=== PATIENT | female | born 1940 | race Caucasian/White ===

== ENCOUNTER → 2016-11-03 | Outpatient (CLI) | payer MEDICARE ==
[~2016-11-03] MED LIST: ASPIRIN81 M1 PO; ATARAX25 MG PO; CALCIUM; COUMADIN5 M1 IV; DILTIAZEM120 MG PO; FISH OIL; HYDROCODONE BIT1 T11 PO; LANOXIN; LOPRESSOR25 MG PO; MOBIC7.5 MG PO; MULTIPLE VITAMI1 CAP PO; PREDNISONE20 MG PO; PROTONIX; QUINAPRIL HYDRO1 TA3 PO; REGLAN5 MG PO; TUMS 500500 MG PO; VITAMIN D; [UNRECOGNIZED DRUG - REMARK]
[2016-11-03 15:38] LABS: INTERNATIONAL NORM RATIO 2.9 (2.0-3.5); PROTHROMBIN TIME 31.3 SECONDS (9.0-12.4)
== END | disposition home or self-care (01) ==
LOC: LAB 14:51
PROVIDERS: Internal Medicine
DX: I48.91 Unspecified atrial fibrillation (principal)

== ENCOUNTER → 2017-01-14 | Outpatient (CLI) | payer MEDICARE, OTHER ==
[2017-01-14 14:51] LABS: PROTHROMBIN TIME 34.1 SECONDS (9.0-12.4)
== END | disposition home or self-care (01) ==
LOC: LAB 13:45
PROVIDERS: Internal Medicine
DX: I48.91 Unspecified atrial fibrillation (principal)

== ENCOUNTER → 2017-01-20 | Outpatient (CLI) | payer MEDICARE, OTHER ==
[2017-01-20 10:46] LABS: HEMATOCRIT 48.5 % (37.0-47.0); HEMOGLOBIN 16.1 g/dl (12.0-16.0); MEAN CELL VOLUME 93.3 fl (81.0-99.0); MEAN CORPUSCULAR HGB CONC 33.2 g/dl (33.0-37.0); MEAN PLATELET VOLUME 9.8 fl (9.6-12.3); RED BLOOD COUNT 5.2 10*6/uL (4.10-5.10); RED CELL DISTRI WIDTH 13.6 % (0-14.5); WHITE BLOOD COUNT 8.1 10*3/uL (4.8-10.8)
[2017-01-20 11:10] LABS: ALBUMIN 3.6 gm/dl (3.1-4.5); ALKALINE PHOSPHATASE 54 U/L (45-117); BILIRUBIN, TOTAL 0.7 mg/dl (0.2-1.0); BUN 15 mg/dl (7-24); CARBON DIOXIDE 30 mmol/L (21-32); CHLORIDE 108 mmol/L (98-107); CHOLESTEROL 204 mg/dL (<200); EST GLOM FILT AFRICAN AMERICAN > 60 ml/min; GLUCOSE 91 mg/dL (65-99); HDL CHOLESTEROL 49 mg/dl (40-60); LDL CHOLESTEROL 123 mg/dL (9-159); POTASSIUM 4.9 mmol/L (3.5-5.1); SGOT/AST 16 IU/L (3-35); SGPT/ALT 22 U/L (12-78); SODIUM 147 mmol/L (136-145); TOTAL PROTEIN 7.4 gm/dL (6.4-8.2); TRIGLYCERIDES 161 mg/dl (<150); VLDL CHOLESTEROL 32 mg/dL (6-40)
== END | disposition home or self-care (01) ==
LOC: LAB 10:09
PROVIDERS: Internal Medicine
DX: Z00.00 Encounter for general adult medical examination without abnormal findings (principal)

== ENCOUNTER → 2017-02-18 | Outpatient (CLI) | payer MEDICARE, OTHER ==
[2017-02-18 13:36] LABS: INTERNATIONAL NORM RATIO 1.4 (2.0-3.5); PROTHROMBIN TIME 15.4 SECONDS (9.0-12.4)
== END | disposition home or self-care (01) ==
LOC: LAB 12:35
PROVIDERS: Internal Medicine
DX: I48.91 Unspecified atrial fibrillation (principal)

== ENCOUNTER → 2017-04-25 | Outpatient (CLI) | payer MEDICARE, OTHER ==
[2017-04-25 16:41] LABS: INTERNATIONAL NORM RATIO 2.7 (2.0-3.5); PROTHROMBIN TIME 30.6 SECONDS (9.0-12.4)
== END | disposition home or self-care (01) ==
LOC: LAB 16:14
PROVIDERS: Internal Medicine
DX: I48.91 Unspecified atrial fibrillation (principal)

== ENCOUNTER 2017-05-23 22:35 | Emergency (ER) | payer MEDICARE, OTHER ==
[~2017-05-23] VITALS: Ht 165.1 cm; Wt 93.0 kg
[2017-05-23 23:24] LABS: BASO # 0.1 10*3/uL (0.0-0.1); BASO % 0.6 % (0.0-1.0); EOS # 0.1 10*3/uL (0.0-0.4); EOS % 1.4 % (1.0-4.0); HEMATOCRIT 45.5 % (37.0-47.0); HEMOGLOBIN 15.1 g/dl (12.0-16.0); IG # 0.1 10*3/uL (0.0-0.1); LYMPH # 1.9 10*3/uL (1.3-4.4); LYMPH % 20.7 % (27.0-41.0); MEAN CELL VOLUME 92.7 fl (81.0-99.0); MEAN CORPUSCULAR HGB 30.8 pg (27.0-31.0); MEAN CORPUSCULAR HGB CONC 33.2 g/dl (33.0-37.0); MEAN PLATELET VOLUME 9.6 fl (9.6-12.3); MONO # 0.9 10*3/uL (0.1-1.0); MONO % 9.4 % (3.0-9.0); NEUT # 6.3 10*3/uL (2.3-7.9); NEUT % 67.4 % (47.0-73.0); PLATELET COUNT AUTOMATED 234 10*3/uL (130-400); RED BLOOD COUNT 4.91 10*6/uL (4.10-5.10); RED CELL DISTRI WIDTH 13.1 % (0-14.5); WHITE BLOOD COUNT 9.3 10*3/uL (4.8-10.8)
[2017-05-23 23:38] LABS: PROTHROMBIN TIME 56.1 SECONDS (9.0-12.4)
[2017-05-23 23:40] LABS: ALBUMIN 3.5 gm/dl (3.1-4.5); ALKALINE PHOSPHATASE 55 U/L (45-117); BILIRUBIN, TOTAL 0.4 mg/dl (0.2-1.0); BUN 17 mg/dl (7-24); CARBON DIOXIDE 28 mmol/L (21-32); CHLORIDE 107 mmol/L (98-107); EST GLOM FILT AFRICAN AMERICAN > 60 ml/min; GLUCOSE 98 mg/dL (65-99); POTASSIUM 4.3 mmol/L (3.5-5.1); SGOT/AST 16 IU/L (3-35); SGPT/ALT 16 U/L (12-78); SODIUM 143 mmol/L (136-145); TOTAL PROTEIN 7.2 gm/dL (6.4-8.2)
[2017-05-23 23:41] LABS: INTERNATIONAL NORM RATIO 4.8 (2.0-3.5)
== END 2017-05-24 00:23 | disposition home or self-care (01) ==
LOC: ED 22:35
PROVIDERS: Nurse Practitioner Family
DX: R79.1 Abnormal coagulation profile (principal); Z79.02 Long term (current) use of antithrombotics/antiplatelets; Z91.048 Other nonmedicinal substance allergy status

== ENCOUNTER 2019-03-07 17:09 | Emergency (ER) | payer MEDICARE, OTHER ==
[~2019-03-07] VITALS: Ht 165.1 cm; Wt 94.3 kg
--- NOTE | ~2019-03-07 | EKG ---
[place], [place] ELECTROCARDIOGRAM REPORT NAME: JERMAN DEMPSEY UNIT #: [id number] ROOM: DOCTOR: EPIPHANY DRAFT REPORT BIRTHDATE: [birth year] [facility] Test Date: 2019-03-07 Test Time: 17:12:19 Pat Name: JERMAN DEMPSEY Department: ER Room: Gender: F Computer Network Specialist: : [id number] Requested By: LEIGH HAYWARD Order Number: [id number] Reading MD: Anjel Galindo MD Measurements Intervals [place] Rate: 70 P: MD: QRS: 217 QRSD: 126 T: 45 QT: 414 QTc: 447 Interpretive Statements Afib/flutter and ventricular-paced rhythm No further analysis attempted due to paced rhythm Compared to ECG 10/11/2018 07:47:23 No significant changes Electronically Signed On 03-08-2019 8:14:02 PDT by Anjel Galindo MD CM:EKGRPT:ELECTROCARDIOGRAM REPORT [id number] LEIGH NOBLES DRAFT REPORT LEIGH HAYWARD DO
[~2019-03-07 17:09] MED LIST changes: +ASPIRIN ADULT L81 M2 PO; +CIPRO500 MG PO; +COUMADIN4 M2 PO; +LISINOPRIL20 MG PO; +TOPROL XL50 M1 PO; +VESICARE10 MG PO; +ZESTRIL10 MG PO
[2019-03-07 17:58] LABS: BASO # 0.1 10*3/uL (0.0-0.1); BASO % 0.8 % (0.0-1.0); EOS # 0.1 10*3/uL (0.0-0.4); EOS % 0.9 % (1.0-4.0); HEMATOCRIT 47.6 % (37.0-47.0); HEMOGLOBIN 15.6 g/dl (12.0-16.0); LYMPH # 1.9 10*3/uL (1.3-4.4); LYMPH % 21.3 % (27.0-41.0); MEAN CELL VOLUME 96.6 fl (81.0-99.0); MEAN CORPUSCULAR HGB 31.6 pg (27.0-31.0); MEAN CORPUSCULAR HGB CONC 32.8 g/dl (33.0-37.0); MEAN PLATELET VOLUME 10.3 fl (9.6-12.3); MONO # 0.9 10*3/uL (0.1-1.0); MONO % 9.7 % (3.0-9.0); PLATELET COUNT AUTOMATED 252 10*3/uL (130-400); RED BLOOD COUNT 4.93 10*6/uL (4.10-5.10)
[2019-03-07 18:14] LABS: ALBUMIN 3.5 gm/dl (3.1-4.5); ALKALINE PHOSPHATASE 54 U/L (45-117); BUN 14 mg/dl (7-24); CHLORIDE 108 mmol/L (98-107); CREATININE 0.78 mg/dL (0.55-1.02); POTASSIUM 3.6 mmol/L (3.5-5.1); SGOT/AST 16 IU/L (3-35); SGPT/ALT 13 U/L (12-78); SODIUM 144 mmol/L (136-145); TOTAL PROTEIN 7.3 gm/dL (6.4-8.2)
[2019-03-07 18:18] LABS: TROPONIN I < 0.015 ng/ml (<0.045)
[2019-03-07 18:20] LABS: ACT PARTIAL THROMBO TIME 36.8 SECONDS (20.0-32.1); INTERNATIONAL NORM RATIO 3.3 (2.0-3.5)
[2019-03-07 18:28] LABS: BILIRUBIN NEGATIVE (NEGATIVE); BLOOD 1+ (NEGATIVE); CLARITY CLOUDY (CLEAR); COLOR YELLOW (YELLOW); GLUCOSE NEGATIVE (NEGATIVE); KETONE NEGATIVE (NEGATIVE); LEUKO ESTERASE 2+ (NEGATIVE); NITRITE NEGATIVE (NEGATIVE); PH 5.5 (5.0-9.0); SPECIFIC GRAVITY 1.025 (1.005-1.030); UROBILINOGEN 0.2 E.U./dl (0.2-1.0)
[2019-03-07 18:35] LABS: BACTERIA 2+; WBC TNTC wbc/hpf (0-5)
[2019-03-07 19:03] VITALS: BP 158/96
[2019-03-07] MEDS ORDERED: LEVAQUIN750 M1 PO (19:52)
[2019-06-14] MEDS ORDERED: SINEMET 25-1001 EACH PO (23:13)
[2019-06-14] MEDS ORDERED: LUMIGAN50 DRP OPH (23:14)
[2019-06-14] MEDS ORDERED: ALENDRONATE SOD35 M1 PO (23:14)
== END 2019-03-07 20:10 | disposition home or self-care (01) ==
LOC: ED 17:09
PROVIDERS: Emergency Medicine; Physician Assistant
DX: N39.0 Urinary tract infection, site not specified (principal); R41.0 Disorientation, unspecified; Z91.041 Radiographic dye allergy status; Z79.2 Long term (current) use of antibiotics; Z79.82 Long term (current) use of aspirin; Z79.899 Other long term (current) drug therapy; Z79.01 Long term (current) use of anticoagulants; Z90.710 Acquired absence of both cervix and uterus

== ENCOUNTER 2019-08-12 08:23 | Inpatient (IN) | payer MEDICARE, OTHER ==
[~2019-08-12] VITALS: Ht 165.1 cm; Wt 87.2 kg
[~2019-08-12 08:23] MED LIST changes: +ALENDRONATE SOD35 M1 PO; +LEVAQUIN750 M1 PO; +LUMIGAN50 DRP OPH; +SINEMET 25-1001 EACH PO
[2019-08-12 08:27] VITALS: BP 142/80
[2019-08-12 09:08] LABS: BASO % 0.3 % (0.0-1.0); EOS % 0.1 % (1.0-4.0); HEMATOCRIT 43.5 % (37.0-47.0); HEMOGLOBIN 14.5 g/dl (12.0-16.0); LYMPH # 0.9 10*3/uL (1.3-4.4); LYMPH % 8.6 % (27.0-41.0); MEAN CELL VOLUME 94.6 fl (81.0-99.0); MEAN CORPUSCULAR HGB 31.5 pg (27.0-31.0); MEAN CORPUSCULAR HGB CONC 33.3 g/dl (33.0-37.0); MEAN PLATELET VOLUME 9.8 fl (9.6-12.3); MONO # 0.8 10*3/uL (0.1-1.0); MONO % 7.4 % (3.0-9.0); NEUT % 83.2 % (47.0-73.0); PLATELET COUNT AUTOMATED 219 10*3/uL (130-400); RED CELL DISTRI WIDTH 13.1 % (0-14.5); WHITE BLOOD COUNT 10.8 10*3/uL (4.8-10.8)
[2019-08-12 09:23] LABS: ALBUMIN 3.4 gm/dl (3.1-4.5); ALKALINE PHOSPHATASE 50 U/L (45-117); BUN 16 mg/dl (7-24); CHLORIDE 107 mmol/L (98-107); CREATININE 0.79 mg/dL (0.55-1.02); POTASSIUM 4.4 mmol/L (3.5-5.1); SGOT/AST 10 IU/L (3-35); SGPT/ALT 12 U/L (12-78); SODIUM 140 mmol/L (136-145); TOTAL PROTEIN 7.1 gm/dL (6.4-8.2)
--- NOTE | 2019-08-12 09:34 | NUR ---
i offered to clean pt up in er but she wants to wait untill she goes upstairs to get cleaned up. dr shen aware
[2019-08-12 09:38] LABS: ACT PARTIAL THROMBO TIME 37.9 SECONDS (20.0-32.1); INTERNATIONAL NORM RATIO 2.6 (2.0-3.5)
--- NOTE | 2019-08-12 09:45 | NUR ---
PT WANTS TO HOLD OFF IN IV SITE DR DAIGLE IS AWARE
--- NOTE | 2019-08-12 09:45 | NUR ---
PT DOES NOT WANT BLOOD GIVEN DR DAIGLE IS AWARE
[2019-08-12 10:22] VITALS: BP 140/78
[2019-08-12 10:37] VITALS: BP 138/78; BP 140/74
--- NOTE | 2019-08-12 10:37 | NUR ---
A 78, admitted to 5E, under the services of YARY Park DO with a diagnosis of RECTAL BLEEDING. Chief complaint is RECTAL BLEEDING. Patient arrived via wheel chair from ER. Monitor applied. Initial assessment completed. Vital signs taken and recorded. YARY PARK DO notified of admission to the unit. Orders received. See assessment for past medical history, medications and allergies. Patient and/or family oriented to unit. [address] visitation policy reviewed. Clothing/patient valuable form completed. YESSI HAYWARD
[2019-08-12] MEDS ORDERED: ESCITALOPRAM OX10 MG PO (12:27)
--- NOTE | 2019-08-12 12:30 | NUR ---
DR CARTER NOTIFIED OF COMPLETED MED REC.
--- NOTE | 2019-08-12 12:44 | NUR ---
DR GAO CONSULTED. INFORMED HIM THAT THE PATIENT STATED SHE HAD A COLONOSCOPY THIS PAST MAY AND THAT THE RESULTS WERE NORMAL. HIS ORDERS WERE TO REPEAT H&H AT 6PM [facility] ON 08/12/2019. IF THE RESULTS FOR H&H AND ARE "STABLE" HE WANTS THE HOSPITALIST TO KNOW THAT THE PATIENT CAN BE TREATED AN OUTPATIENT.
--- NOTE | 2019-08-12 15:26 | NUR ---
PATIENT REFUSED MIREILLE HOSE. RATIONALE FOR MIREILLE HOSE EXPLAINED. PATIENT STILL REFUSING. PATIENT AGREED TO WEAR SCD'S. SCD'S APPLIED TO BOTH LEGS AND WORKING.
--- NOTE | 2019-08-12 15:31 | NUR ---
24 HR chart check completed.
[2019-08-12 15:58] VITALS: BP 136/78
[2019-08-12 16:00] VITALS: BP 143/87
[2019-08-12 18:26] LABS: HEMATOCRIT 44.6 % (37.0-47.0); HEMOGLOBIN 14.4 g/dl (12.0-16.0)
--- NOTE | 2019-08-12 19:02 | NUR ---
DR. CARTER NOTIFIED OF NEW H&H RESULTS PER DR. GAO'S REQUEST OF PREVIOUS ORDERS TO LET THE HOSPITALIST KNOW THE RESULTS.
[2019-08-12 20:00] VITALS: BP 135/84
--- NOTE | 2019-08-12 21:55 | NUR ---
PT MEDICATED WITH PO TYLENOL PER PRN ORDER FOR C/O GENERALIZED DISCOMFORT & NECK PAIN RATED 4/10. WILL MONITOR. CALL LIGHT IN REACH. SCDs REAPPLIED PT NOW AGREES TO WEAR.
[2019-08-13] VITALS: BP 126/79
--- NOTE | 2019-08-13 06:30 | NUR ---
PATIENT HAS APPOINTMENT TODAY 08/13/19 WITH . REQUESTING TO BE DISCHARGED PRIOR TO THIS TIME. WILL NOTIFY OF PATIENT REQUEST. PATIENT EDUCATION/TEACHING PROVIDED.
--- NOTE | 2019-08-13 06:50 | NUR ---
NOTIFIED OF PATIENT'S REQUEST TO BE SEEN EARLY THIS AM AND REQUESTING EARLY DISCHARGE. WILL NOTIFY DAY TEAM.
[2019-08-13 07:33] LABS: BASO % 0.5 % (0.0-1.0); EOS # 0.1 10*3/uL (0.0-0.4); EOS % 0.7 % (1.0-4.0); HEMATOCRIT 44.8 % (37.0-47.0); HEMOGLOBIN 14.5 g/dl (12.0-16.0); LYMPH # 1.7 10*3/uL (1.3-4.4); LYMPH % 20.4 % (27.0-41.0); MEAN CELL VOLUME 95.9 fl (81.0-99.0); MEAN CORPUSCULAR HGB CONC 32.4 g/dl (33.0-37.0); MEAN PLATELET VOLUME 9.6 fl (9.6-12.3); MONO # 0.9 10*3/uL (0.1-1.0); MONO % 10.2 % (3.0-9.0); NEUT # 5.8 10*3/uL (2.3-7.9); NEUT % 67.8 % (47.0-73.0); PLATELET COUNT AUTOMATED 216 10*3/uL (130-400); RED BLOOD COUNT 4.67 10*6/uL (4.10-5.10); RED CELL DISTRI WIDTH 13.2 % (0-14.5); WHITE BLOOD COUNT 8.5 10*3/uL (4.8-10.8)
[2019-08-13 07:43] LABS: INTERNATIONAL NORM RATIO 2.4 (2.0-3.5)
[2019-08-13 08:00] VITALS: BP 144/80
[2019-08-13 08:00] LABS: BUN 15 mg/dl (7-24); CHLORIDE 108 mmol/L (98-107); CREATININE 0.73 mg/dL (0.55-1.02); SODIUM 144 mmol/L (136-145)
[2019-08-13] MEDS ORDERED: COUMADIN4 M2 PO (08:18)
[2019-08-13] MEDS ORDERED: LUMIGAN50 DRP OPH (08:18)
[2019-08-13] MEDS ORDERED: DOCUSATE SOD100 MG PO (09:35)
--- NOTE | 2019-08-13 09:51 | NUR ---
Discharge instructions reviewed with patient/family. Patient receptive and verbalizes understanding. Follow-up care understood. Written instructions given to patient/family. iv removed, dressing applied. pt discharged via wheelchair NERI STEWART
--- NOTE | 2019-08-13 12:02 | NUR ---
PT DISCHARGED BEFORE PILLING MACHINE OPERATOR WAS ABLE TO SEE.
== END 2019-08-13 09:51 | disposition home or self-care (01) | DRG 379 ==
LOC: ED 08:23 → EDHOLD 09:59 → 5E 09:59
PROVIDERS: Emergency Medicine; Internal Medicine; ADMIT Internal Medicine
DX: K62.5 Hemorrhage of anus and rectum (principal); K59.00 Constipation, unspecified; I10 Essential (primary) hypertension; Z96.653 Presence of artificial knee joint, bilateral; I48.91 Unspecified atrial fibrillation; M81.0 Age-related osteoporosis without current pathological fracture; R73.9 Hyperglycemia, unspecified; Z96.641 Presence of right artificial hip joint; E66.9 Obesity, unspecified; Z91.041 Radiographic dye allergy status; Z95.0 Presence of cardiac pacemaker; Z90.12 Acquired absence of left breast and nipple; Z90.710 Acquired absence of both cervix and uterus; Z83.3 Family history of diabetes mellitus; Z82.49 Family history of ischemic heart disease and other diseases of the circulatory system; Z82.3 Family history of stroke; Z80.9 Family history of malignant neoplasm, unspecified; Z79.01 Long term (current) use of anticoagulants; Z85.3 Personal history of malignant neoplasm of breast; Z79.82 Long term (current) use of aspirin; Z79.899 Other long term (current) drug therapy; Z68.32 Body mass index [BMI] 32.0-32.9, adult

== ENCOUNTER 2020-04-25 12:30 | Inpatient (IN) | payer MEDICARE, OTHER ==
[~2020-04-25] VITALS: Ht 165.1 cm; Wt 86.0 kg
[~2020-04-25 12:30] MED LIST changes: +DOCUSATE SOD100 MG PO; +ESCITALOPRAM OX10 MG PO
[2020-04-25 12:52] VITALS: BP 145/77
--- NOTE | 2020-04-25 12:52 | NUR ---
PATIENT AND PATIENT SON DENIES WOUNDS ON PATIENT AT THIS TIME.
[2020-04-25 13:13] LABS: BASO % 0.3 % (0.0-1.0); EOS % 0.1 % (1.0-4.0); LYMPH # 0.8 10*3/uL (1.3-4.4); LYMPH % 5.4 % (27.0-41.0); MEAN CELL VOLUME 91.4 fl (81.0-99.0); MEAN CORPUSCULAR HGB 31.2 pg (27.0-31.0); MEAN CORPUSCULAR HGB CONC 34.1 g/dl (33.0-37.0); MEAN PLATELET VOLUME 10.2 fl (9.6-12.3); MONO # 1.1 10*3/uL (0.1-1.0); MONO % 7.6 % (3.0-9.0); NEUT # 12.6 10*3/uL (2.3-7.9); NEUT % 86.1 % (47.0-73.0); PLATELET COUNT AUTOMATED 250 10*3/uL (130-400); RED BLOOD COUNT 5.58 10*6/uL (4.10-5.10); RED CELL DISTRI WIDTH 12.9 % (0-14.5); WHITE BLOOD COUNT 14.7 10*3/uL (4.8-10.8)
[2020-04-25 13:31] LABS: ALBUMIN 3.4 gm/dl (3.1-4.5); ALKALINE PHOSPHATASE 63 U/L (45-117); BUN 25 mg/dl (7-24); CHLORIDE 105 mmol/L (98-107); POTASSIUM 3.6 mmol/L (3.5-5.1); SGOT/AST 32 IU/L (3-35); SGPT/ALT 25 U/L (12-78); SODIUM 139 mmol/L (136-145); TOTAL PROTEIN 7.9 gm/dL (6.4-8.2)
[2020-04-25 16:53] LABS: CLARITY CLEAR (CLEAR); COLOR YELLOW (YELLOW)
[2020-04-25 16:54] LABS: BILIRUBIN NEGATIVE (NEGATIVE); BLOOD TRACE-INTACT (NEGATIVE); GLUCOSE NEGATIVE (NEGATIVE); KETONE 2+ (NEGATIVE); LEUKO ESTERASE 2+ (NEGATIVE); NITRITE NEGATIVE (NEGATIVE); SPECIFIC GRAVITY 1.025 (1.005-1.030); UROBILINOGEN 0.2 E.U./dl (0.2-1.0)
[2020-04-25 16:56] LABS: BACTERIA 2+; EPITHELIAL CELLS 16-20; WBC 41-50 wbc/hpf (0-5)
[2020-04-25 19:15] VITALS: BP 117/81
--- NOTE | 2020-04-25 19:18 | NUR ---
NURSE TO NURSE REPORT GIVEN TO THIS RN.PT AWAITING ADMISSION AND ROOM #.
--- NOTE | 2020-04-25 19:36 | NUR ---
BED ASSIGNMENT RECVD.PT AWAITING TRANSFER TO FLOOR.
[2020-04-25 19:52] VITALS: BP 112/96
--- NOTE | 2020-04-25 19:52 | NUR ---
PATIENT UNSURE OF HOME MEDICATIONS. USES [facility]
--- NOTE | 2020-04-25 19:52 | NUR ---
Time: 1951 A 79 year old FEMALE admitted to under services of SARAY BORGES DO, Pt. arrived via stretcher from ER. Chief complaint: FALL AT HOME, CONFUSION. BRANDY MUNOZ PATIENT STATES THAT SHE HAS HAD THE "FLU" SINCE TUESDAY AND HAS NOT EATEN FOR 3 DAYS.
--- NOTE | 2020-04-25 20:04 | NUR ---
PASSWORD FOR FAMILY "ELIECER".
[2020-04-26] VITALS: BP 121/51
[2020-04-26 06:23] LABS: BASO # 0.1 10*3/uL (0.0-0.1); BASO % 0.8 % (0.0-1.0); EOS # 0.1 10*3/uL (0.0-0.4); EOS % 1.3 % (1.0-4.0); HEMATOCRIT 44.9 % (37.0-47.0); LYMPH # 1.2 10*3/uL (1.3-4.4); LYMPH % 12.1 % (27.0-41.0); MEAN CELL VOLUME 92.6 fl (81.0-99.0); MEAN CORPUSCULAR HGB 30.9 pg (27.0-31.0); MEAN CORPUSCULAR HGB CONC 33.4 g/dl (33.0-37.0); MEAN PLATELET VOLUME 10.5 fl (9.6-12.3); MONO % 10.2 % (3.0-9.0); NEUT # 7.7 10*3/uL (2.3-7.9); NEUT % 75.2 % (47.0-73.0); PLATELET COUNT AUTOMATED 212 10*3/uL (130-400); RED BLOOD COUNT 4.85 10*6/uL (4.10-5.10); RED CELL DISTRI WIDTH 12.9 % (0-14.5); WHITE BLOOD COUNT 10.2 10*3/uL (4.8-10.8)
[2020-04-26 06:25] LABS: BUN 30 mg/dl (7-24); CHLORIDE 111 mmol/L (98-107); CREATININE 0.87 mg/dL (0.55-1.02); POTASSIUM 2.9 mmol/L (3.5-5.1); SODIUM 142 mmol/L (136-145)
--- NOTE | 2020-04-26 06:34 | NUR ---
PT RESTING, NO NEEDS MADE. CALL LIGHT IN REACH/
[2020-04-26 06:39] LABS: INTERNATIONAL NORM RATIO 1.1 (2.0-3.5)
--- NOTE | 2020-04-26 07:57 | NUR ---
24HR CHART CHECK COMPLETE.
[2020-04-26 08:00] VITALS: BP 126/73
--- NOTE | 2020-04-26 08:01 | NUR ---
24HR CHART CHECK COMPLETE.
--- NOTE | 2020-04-26 08:30 | NUR ---
Lining Closer in to talk to patient. Patient states lives at home alone with her 2 sons living very close to her. There are basement steps in the home. Physician: Dr. Esteban Adorno Pharmacy: [facility] Home health services: none Patient's level of ADLs: MINIMAL ASSIST Patient has working utilities: yes DME: rollator Follow-up physician's appointment after d/c: will be made by the hospitalist nurse director upon discharge Does patient want to access PORTAL?: no Discharge plan discussed with patient. She lives at home with her 2 sons living very close to her. She is independent in her ADLs and ambulates with a rollator. Discussed short term rehab and home health care services and she denies a need for either at this time. When medically stable she will be discharged to home. She states one of her children will provide transportation on discharge. PIPE CUELLAR
[2020-04-26] MEDS ORDERED: CONSTULOSE10 GM/151 PO (10:42)
[2020-04-26] MEDS ORDERED: XARELTO2.5 MG PO (10:43)
--- NOTE | 2020-04-26 10:45 | NUR ---
MED REC: UPDATED MED REC WITH [facility]. INFORMED DR PRESCOTT OF CHANGES. NO NEW ORDERS AT THIS TIME. CONINUE TO MONITOR THE PT.
[2020-04-26 12:00] VITALS: BP 129/69
[2020-04-26 16:00] VITALS: BP 119/64
--- NOTE | 2020-04-26 16:33 | NUR ---
Patient resting quietly with no c/o discomfort. Respirations easy and regular. Vital signs stable. No overt distress. DENNIS FABIAN
[2020-04-26 20:02] VITALS: BP 130/82
[2020-04-27] VITALS: BP 130/74
[2020-04-27 06:06] LABS: BASO # 0.1 10*3/uL (0.0-0.1); BASO % 0.9 % (0.0-1.0); BUN 27 mg/dl (7-24); CHLORIDE 114 mmol/L (98-107); CREATININE 0.77 mg/dL (0.55-1.02); EOS # 0.3 10*3/uL (0.0-0.4); EOS % 2.9 % (1.0-4.0); HEMATOCRIT 40.1 % (37.0-47.0); LYMPH # 1.7 10*3/uL (1.3-4.4); LYMPH % 19.7 % (27.0-41.0); MEAN CELL VOLUME 93.3 fl (81.0-99.0); MEAN CORPUSCULAR HGB 30.9 pg (27.0-31.0); MEAN CORPUSCULAR HGB CONC 33.2 g/dl (33.0-37.0); MONO # 1.1 10*3/uL (0.1-1.0); MONO % 12.3 % (3.0-9.0); NEUT # 5.5 10*3/uL (2.3-7.9); NEUT % 63.6 % (47.0-73.0); PLATELET COUNT AUTOMATED 212 10*3/uL (130-400); POTASSIUM 3.5 mmol/L (3.5-5.1); SODIUM 146 mmol/L (136-145); WHITE BLOOD COUNT 8.7 10*3/uL (4.8-10.8)
[2020-04-27 08:00] VITALS: BP 150/80; BP 170/90
--- NOTE | 2020-04-27 08:00 | NUR ---
ASSISTED PATIENT UP TO BATHROOM. STEADY GAIT. WILL CONTINUE TO MONITOR. NO VOICED COMPLAINTS.
--- NOTE | 2020-04-27 09:40 | NUR ---
PATIENT SITTING UP IN BED. GOOD APPETITE FOR BREAKFAST. PT ALERT AND ORIENTED TO PERSON AND PLACE. RESPIRATIONS EASY, REGULAR ON RA. WILL CONTINUE TO MONITOR. VSS. CALL LIGHT WITHIN REACH.
[2020-04-27 12:00] VITALS: BP 118/77
--- NOTE | 2020-04-27 15:30 | NUR ---
FAMILY MEMBER AT BEDSIDE.
[2020-04-27 16:00] VITALS: BP 149/90
[2020-04-27 20:00] VITALS: BP 147/99
--- NOTE | 2020-04-27 21:25 | NUR ---
PT AMBULATORY TO BATHROOM AND BACK TO BED. TOLERATED ROUTINE MED WITH NO PROBLEM. C/O CONSTIPATION, MEDICATED WITH DUCOLAX PO PER PRN ORDER, SEE EMAR. CALL LIGHT IN REACH.
--- NOTE | 2020-04-27 22:45 | NUR ---
RESTING IN BED WITH EYES CLOSED. RESP-EASY AND REGULAR. NO C/O AT THIS TIME. CALL LIGHT IN REACH.
[2020-04-28] VITALS: BP 168/93
--- NOTE | 2020-04-28 | NUR ---
PT SLEEPING IN BED. RESP-EASY AND REGULAR. CALL LIGHT IN REACH. SEE SHIFT ASSESSMENT.
--- NOTE | 2020-04-28 01:20 | NUR ---
PT AMBULATORY OUT IN HALLWAY LOOKING FOR SHEETS. SHE SAYS SHE STRIPPED HER BED. ASSISTED PT BACK TO ROOM AND MADE BED FOR PT. SHE ALERT TO NAME PLACE TIME AT THIS TIME. CALL LIGHT IN REACH. BED ALARM ON.
--- NOTE | 2020-04-28 04:15 | NUR ---
PT SLEEPING IN BED. RESP-EASY AND REGULAR. CALL LIGHT IN REACH. BED ALARM ON.
[2020-04-28 08:00] VITALS: BP 154/90
--- NOTE | 2020-04-28 09:00 | NUR ---
Saxophone Assembler in to see patient. Discussed home health care services and she is agreeable. When provided with list of agencies she chose [facility]. Anh Gutierrez notified. When medically stable she will be discharged to home with [facility] services.
--- NOTE | 2020-04-28 09:20 | NUR ---
PHYSICAL THERAPY Eval received chart reviewed, SENIOR SECURITY ANALYST Anh in with patient and looking to discharge patient today, she has been up amb with staff with no issues. Will defer therapy eval at this time due to being discharged no functional concerns per SENIOR SECURITY ANALYST, thank you for this referral. Nely Tinajero PT
--- NOTE | 2020-04-28 09:29 | NUR ---
OT NOTE Occupational therapy order received and chart reviewed. Per discussion with Anh CLARK, patient is independent with ADLs, ambulatory, and is possible for discharge home today. No further OT indicated at this time. Thank you. Sharon Galicia OTR/L
[2020-04-28] MEDS ORDERED: OMNICEF300 MG PO (10:47)
[2020-04-28 12:00] VITALS: BP 150/72
--- NOTE | 2020-04-28 12:04 | NUR ---
Faxed home health care order to [facility]
--- NOTE | 2020-04-28 15:24 | NUR ---
Discharge instructions reviewed with patient/family. Patient receptive and verbalizes understanding. Follow-up care arranged. Written instructions given to patient/family. TIMUR SEXTON
== END 2020-04-28 15:24 | disposition home health service (06) | DRG 689 ==
LOC: ED 12:30 → 4E 17:42 → EDHOLD 17:42 → 4E 19:40
PROVIDERS: Emergency Medicine; Internal Medicine; Student in an Organized Health Care Education/Training Program; ADMIT Internal Medicine
DX: N39.0 Urinary tract infection, site not specified (principal); G93.41 Metabolic encephalopathy; E87.2 Acidosis; D68.59 Other primary thrombophilia; I48.19 Other persistent atrial fibrillation; R26.2 Difficulty in walking, not elsewhere classified; D72.9 Disorder of white blood cells, unspecified; Z96.653 Presence of artificial knee joint, bilateral; Z96.641 Presence of right artificial hip joint; D75.1 Secondary polycythemia; I10 Essential (primary) hypertension; M81.0 Age-related osteoporosis without current pathological fracture; G93.89 Other specified disorders of brain; B96.20 Unspecified Escherichia coli [E. coli] as the cause of diseases classified elsewhere; Z91.81 History of falling; Z95.0 Presence of cardiac pacemaker; Z91.041 Radiographic dye allergy status; Z90.710 Acquired absence of both cervix and uterus; Z98.42 Cataract extraction status, left eye; Z98.41 Cataract extraction status, right eye; Z80.8 Family history of malignant neoplasm of other organs or systems; Z82.3 Family history of stroke; Z83.3 Family history of diabetes mellitus; Z82.49 Family history of ischemic heart disease and other diseases of the circulatory system; Z85.3 Personal history of malignant neoplasm of breast; Z79.82 Long term (current) use of aspirin; Z79.899 Other long term (current) drug therapy; Z79.01 Long term (current) use of anticoagulants

== ENCOUNTER 2020-07-14 15:14 | Observation (INO) | payer MEDICARE, OTHER ==
[~2020-07-14] VITALS: Ht 162.5 cm; Wt 88.0 kg
[~2020-07-14 15:14] MED LIST changes: +CONSTULOSE10 GM/151 PO; +OMNICEF300 MG PO; +XARELTO2.5 MG PO
[2020-07-14 15:33] VITALS: BP 172/98
--- NOTE | 2020-07-14 15:51 | NUR ---
PT REMAINS IN BATHROOM ATTEMPTING A BOWEL MOVEMENT, PT AWARE THAT MULTIPLE LABS EKG,X-RAYS ORDERED.
[2020-07-14 16:26] LABS: BASO # 0.1 10*3/uL (0.0-0.1); BASO % 0.5 % (0.0-1.0); EOS % 0.2 % (1.0-4.0); HEMATOCRIT 44.4 % (37.0-47.0); LYMPH # 1.2 10*3/uL (1.3-4.4); LYMPH % 11.8 % (27.0-41.0); MEAN CELL VOLUME 94.1 fl (81.0-99.0); MEAN CORPUSCULAR HGB 30.9 pg (27.0-31.0); MEAN CORPUSCULAR HGB CONC 32.9 g/dl (33.0-37.0); MEAN PLATELET VOLUME 9.7 fl (9.6-12.3); MONO % 10.2 % (3.0-9.0); NEUT # 7.8 10*3/uL (2.3-7.9); NEUT % 76.9 % (47.0-73.0); PLATELET COUNT AUTOMATED 245 10*3/uL (130-400); RED BLOOD COUNT 4.72 10*6/uL (4.10-5.10); RED CELL DISTRI WIDTH 12.9 % (0-14.5); WHITE BLOOD COUNT 10.2 10*3/uL (4.8-10.8)
[2020-07-14 16:41] LABS: ALBUMIN 3.5 gm/dl (3.1-4.5); ALKALINE PHOSPHATASE 58 U/L (45-117); BUN 17 mg/dl (7-24); CHLORIDE 109 mmol/L (98-107); CREATININE 0.86 mg/dL (0.55-1.02); LIPASE 43 U/L (73-393); POTASSIUM 3.7 mmol/L (3.5-5.1); SGOT/AST 12 IU/L (3-35); SGPT/ALT 10 U/L (12-78); SODIUM 141 mmol/L (136-145); TOTAL PROTEIN 7.3 gm/dL (6.4-8.2); TROPONIN I < 0.015 ng/ml (<0.045)
[2020-07-14 16:52] LABS: ACT PARTIAL THROMBO TIME 30.3 SECONDS (20.0-32.1); INTERNATIONAL NORM RATIO 1.1 (2.0-3.5)
[2020-07-14 17:55] VITALS: BP 170/90
--- NOTE | 2020-07-14 18:03 | NUR ---
pt provided underpants and kasandra-pads d/t bleeding pt with change of 2 peripads while in ed of bright red blood noted to pads.
[2020-07-14 19:19] LABS: BACTERIA 3+; BILIRUBIN NEGATIVE; BLOOD 3+ (NEGATIVE); CALCIUM OXALATE CRYSTALS 1+; CLARITY CLEAR (CLEAR); COLOR YELLOW (YELLOW); GLUCOSE NEGATIVE; KETONE NEGATIVE; LEUKO ESTERASE 2+ (NEGATIVE); MUCOUS 2+; NITRITE NEGATIVE (NEGATIVE); PH 6.5 (4.5-8.0); RBC 16-20 rbc/hpf (0-2); SPECIFIC GRAVITY 1.015 (1.001-1.030)
[2020-07-14 20:14] VITALS: BP 158/77
[2020-07-14 20:45] VITALS: BP 160/99
--- NOTE | 2020-07-14 20:45 | NUR ---
A 79, admitted to 5E, under the services of SARAY Borges DO with a diagnosis of GI BLEED. Chief complaint is ANAL BLEED. Patient arrived via from ER. Monitor applied. Initial assessment completed. Vital signs taken and recorded. SARAY BORGES DO notified of admission to the unit. Orders received. See assessment for past medical history, medications and allergies. Patient and/or family oriented to unit. [facility] visitation policy reviewed. Clothing/patient valuable form completed. ROSARIO TEJEDA
[2020-07-15] VITALS: BP 158/80
[2020-07-15 00:36] LABS: BASO # 0.1 10*3/uL (0.0-0.1); BASO % 0.6 % (0.0-1.0); EOS % 0.3 % (1.0-4.0); HEMATOCRIT 40.1 % (37.0-47.0); LYMPH # 1.8 10*3/uL (1.3-4.4); LYMPH % 20.5 % (27.0-41.0); MEAN CELL VOLUME 93.3 fl (81.0-99.0); MEAN CORPUSCULAR HGB 30.7 pg (27.0-31.0); MEAN CORPUSCULAR HGB CONC 32.9 g/dl (33.0-37.0); MEAN PLATELET VOLUME 9.7 fl (9.6-12.3); MONO % 11.4 % (3.0-9.0); NEUT # 5.8 10*3/uL (2.3-7.9); PLATELET COUNT AUTOMATED 215 10*3/uL (130-400); WHITE BLOOD COUNT 8.6 10*3/uL (4.8-10.8)
--- NOTE | 2020-07-15 06:19 | NUR ---
PATIENT HAS SLEPT ALL THROUGH THE NIGHT WITH NO PROBLEMS OR COMPLAINTS.
[2020-07-15 06:43] LABS: BASO # 0.1 10*3/uL (0.0-0.1); BASO % 0.7 % (0.0-1.0); EOS # 0.1 10*3/uL (0.0-0.4); EOS % 0.7 % (1.0-4.0); LYMPH # 1.5 10*3/uL (1.3-4.4); LYMPH % 21.6 % (27.0-41.0); MEAN CELL VOLUME 94.6 fl (81.0-99.0); MEAN CORPUSCULAR HGB 30.9 pg (27.0-31.0); MEAN CORPUSCULAR HGB CONC 32.6 g/dl (33.0-37.0); MONO # 0.9 10*3/uL (0.1-1.0); MONO % 12.1 % (3.0-9.0); NEUT # 4.6 10*3/uL (2.3-7.9); NEUT % 64.6 % (47.0-73.0); PLATELET COUNT AUTOMATED 202 10*3/uL (130-400); RED BLOOD COUNT 4.44 10*6/uL (4.10-5.10); RED CELL DISTRI WIDTH 12.9 % (0-14.5); WHITE BLOOD COUNT 7.1 10*3/uL (4.8-10.8)
[2020-07-15 06:59] LABS: ALBUMIN 2.8 gm/dl (3.1-4.5); ALKALINE PHOSPHATASE 48 U/L (45-117); BUN 13 mg/dl (7-24); CHLORIDE 112 mmol/L (98-107); CHOLESTEROL 127 mg/dL (<200); CREATININE 0.61 mg/dL (0.55-1.02); FREE T4 1.11 ng/dl (0.76-1.46); HDL CHOLESTEROL 40 mg/dl (40-60); LDL CHOLESTEROL 68 mg/dL (9-159); SGOT/AST 11 IU/L (3-35); SGPT/ALT 10 U/L (12-78); SODIUM 142 mmol/L (136-145); TOTAL PROTEIN 6.2 gm/dL (6.4-8.2); TRIGLYCERIDES 97 mg/dl (<150); VLDL CHOLESTEROL 19 mg/dL (6-40)
[2020-07-15 07:07] LABS: POTASSIUM 3.6 mmol/L (3.5-5.1)
[2020-07-15 08:00] VITALS: BP 140/75
--- NOTE | 2020-07-15 08:30 | NUR ---
PT RESTING IN BED. NO DISTRESS NOTED. WILL MONITOR
--- NOTE | 2020-07-15 08:30 | NUR ---
University Counselor in to talk to patient. Patient states lives at home alone with her son and daughter living very close to her. She does have another son who lives in [place] but states she doesn't see him very often. There are basement steps in the home. Physician: Dr. Esteban Adorno Pharmacy: [facility] Home health services: none Patient's level of ADLs: MINIMAL ASSIST Patient has working utilities: yes DME: cane, rollator Follow-up physician's appointment after d/c: will be made by the hospitalist nurse director upon discharge Does patient want to access PORTAL?: no Discharge plan discussed with patient. She lives at home with her family checking in on her. She is independent in her ADLs and ambulates with a cane when outside. She does have a rollator but doesn't use it. Discussed short term rehab and home health care services and she declines. CM will continue to follow for any discharge planning needs. When medically stable she will be discharged to home. She states her son will provide transportation on discharge. PIPE CUELLAR
[2020-07-15 12:00] VITALS: BP 129/74
[2020-07-15] MEDS ORDERED: ANUSOL-HC25 MG R (13:42)
[2020-07-15] MEDS ORDERED: DULCOLAX STOOL100 M1 PO (13:42)
[2020-07-15] MEDS ORDERED: CEFUROXIME AXE500 MG PO (13:45)
--- NOTE | 2020-07-15 16:20 | NUR ---
Discharge instructions reviewed with patient/family. Patient receptive and verbalizes understanding. Follow-up care arranged. Written instructions given to patient/family. ANTONIO SNYDER
== END 2020-07-15 16:20 | disposition home or self-care (01) ==
LOC: ED 15:14 → EDHOLD 19:03 → 5E 19:03
PROVIDERS: Emergency Medicine; Hospitalist; Internal Medicine; ADMIT Internal Medicine; ATTEND Internal Medicine
DX: K92.2 Gastrointestinal hemorrhage, unspecified (principal); E87.8 Other disorders of electrolyte and fluid balance, not elsewhere classified; E83.41 Hypermagnesemia; R79.89 Other specified abnormal findings of blood chemistry; R11.2 Nausea with vomiting, unspecified; E43 Unspecified severe protein-calorie malnutrition; I48.91 Unspecified atrial fibrillation; I10 Essential (primary) hypertension; M81.0 Age-related osteoporosis without current pathological fracture; K59.00 Constipation, unspecified; N39.0 Urinary tract infection, site not specified

== ENCOUNTER 2021-09-06 18:39 | Emergency (ER) | payer OTHER ==
[~2021-09-06 18:39] MED LIST changes: +ANUSOL-HC25 MG R; +CEFUROXIME AXE500 MG PO; +DULCOLAX STOOL100 M1 PO
[2021-09-06 20:38] VITALS: BP 156/93
== END 2021-09-06 21:10 | disposition home or self-care (01) ==
LOC: ED 18:39
DX: M25.551 Pain in right hip (principal); M54.59 Other low back pain; Z79.899 Other long term (current) drug therapy; W18.39XA Other fall on same level, initial encounter; Y93.89 Activity, other specified; Y92.89 Other specified places as the place of occurrence of the external cause; Y99.8 Other external cause status

== ENCOUNTER 2021-09-24 17:32 | Emergency (ER) | payer OTHER ==
[~2021-09-24] VITALS: Wt 81.0 kg
[2021-09-24 17:40] VITALS: BP 140/55
[2021-09-24 18:31] LABS: BASO # 0.1 10*3/uL (0.0-0.1); BASO % 0.5 % (0.0-1.0); HEMATOCRIT 45.2 % (37.0-47.0); LYMPH # 0.8 10*3/uL (1.3-4.4); MEAN CELL VOLUME 90.9 fl (81.0-99.0); MEAN CORPUSCULAR HGB 30.6 pg (27.0-31.0); MEAN CORPUSCULAR HGB CONC 33.6 g/dl (33.0-37.0); MEAN PLATELET VOLUME 9.7 fl (9.6-12.3); MONO % 9.9 % (3.0-9.0); NEUT # 8.5 10*3/uL (2.3-7.9); NEUT % 81.2 % (47.0-73.0); PLATELET COUNT AUTOMATED 251 10*3/uL (130-400); RED BLOOD COUNT 4.97 10*6/uL (4.10-5.10); RED CELL DISTRI WIDTH 12.8 % (0-14.5); WHITE BLOOD COUNT 10.4 10*3/uL (4.8-10.8)
[2021-09-24 18:47] LABS: ALBUMIN 3.1 gm/dl (3.1-4.5); CREATININE 1.18 mg/dL (0.55-1.02); POTASSIUM 4.1 mmol/L (3.5-5.1); TOTAL PROTEIN 7.8 gm/dL (6.4-8.2)
[2021-09-24 20:17] LABS: BILIRUBIN Negative (Negative); BLOOD Negative (Negative); CLARITY Turbid (Clear); COLOR Dark Yellow (Yellow); GLUCOSE Negative (Negative); KETONE 1+ (Negative); LEUKO ESTERASE Negative (Negative); NITRITE Negative (Negative); PH 5.5 (4.5-8.0)
[2021-09-24 20:26] LABS: BACTERIA TRACE; HYALINE CAST 51-100; RBC 0-2 rbc/hpf (0-2)
== END 2021-09-24 23:59 | disposition home or self-care (01) ==
LOC: ED 17:32
PROVIDERS: Nurse Practitioner Family
DX: R41.0 Disorientation, unspecified (principal); Z79.899 Other long term (current) drug therapy

== ENCOUNTER 2022-06-28 22:05 | Emergency (ER) | payer MEDICARE, OTHER ==
[~2022-06-28] VITALS: Ht 165.1 cm; Wt 81.6 kg
[2022-06-28 22:22] VITALS: BP 143/100
[2022-06-28 23:01] LABS: BASO # 0.1 10*3/uL (0.0-0.1); BASO % 0.8 % (0.0-1.0); EOS # 0.1 10*3/uL (0.0-0.4); EOS % 1.1 % (1.0-4.0); HEMATOCRIT 39.2 % (37.0-47.0); LYMPH % 27.3 % (27.0-41.0); MEAN CELL VOLUME 96.3 fl (81.0-99.0); MEAN CORPUSCULAR HGB 31.4 pg (27.0-31.0); MEAN CORPUSCULAR HGB CONC 32.7 g/dl (33.0-37.0); MONO # 0.7 10*3/uL (0.1-1.0); MONO % 9.5 % (3.0-9.0); NEUT # 4.4 10*3/uL (2.3-7.9); PLATELET COUNT AUTOMATED 204 10*3/uL (130-400); RED BLOOD COUNT 4.07 10*6/uL (4.10-5.10); RED CELL DISTRI WIDTH 13.2 % (0-14.5); WHITE BLOOD COUNT 7.2 10*3/uL (4.8-10.8)
[2022-06-28 23:11] LABS: ACT PARTIAL THROMBO TIME 34.2 SECONDS (20.0-32.1); INTERNATIONAL NORM RATIO 1.1 (2.0-3.5)
== END 2022-06-29 00:57 | disposition home or self-care (01) ==
LOC: ED 22:05
PROVIDERS: Emergency Medicine
DX: R04.0 Epistaxis (principal); Z79.899 Other long term (current) drug therapy; Z90.710 Acquired absence of both cervix and uterus; Z98.890 Other specified postprocedural states

== ENCOUNTER 2022-09-27 15:57 | Emergency (ER) | payer MEDICARE, OTHER ==
[~2022-09-27] VITALS: Ht 165.1 cm; Wt 81.6 kg
[2022-09-27 16:15] VITALS: BP 170/98
[2022-09-27] MEDS ORDERED: VESICARE10 MG PO (16:20)
[2022-09-27 18:44] LABS: BASO # 0.1 10*3/uL (0.0-0.1); BASO % 0.8 % (0.0-1.0); EOS # 0.1 10*3/uL (0.0-0.4); EOS % 1.2 % (1.0-4.0); LYMPH # 1.6 10*3/uL (1.3-4.4); LYMPH % 21.8 % (27.0-41.0); MEAN CELL VOLUME 87.1 fl (81.0-99.0); MEAN CORPUSCULAR HGB 28.1 pg (27.0-31.0); MEAN CORPUSCULAR HGB CONC 32.3 g/dl (33.0-37.0); MEAN PLATELET VOLUME 9.9 fl (9.6-12.3); MONO # 0.8 10*3/uL (0.1-1.0); MONO % 10.9 % (3.0-9.0); NEUT # 4.8 10*3/uL (2.3-7.9); PLATELET COUNT AUTOMATED 274 10*3/uL (130-400); RED BLOOD COUNT 4.59 10*6/uL (4.10-5.10); RED CELL DISTRI WIDTH 15.1 % (0-14.5); WHITE BLOOD COUNT 7.4 10*3/uL (4.8-10.8)
[2022-09-27 18:55] LABS: ACT PARTIAL THROMBO TIME 29.8 SECONDS (20.0-32.1); INTERNATIONAL NORM RATIO 1.1 (2.0-3.5)
[2022-09-27 19:04] LABS: ALKALINE PHOSPHATASE 64 U/L (45-117); BUN 16 mg/dl (7-24); CHLORIDE 105 mmol/L (98-107); CREATININE 0.99 mg/dL (0.55-1.02); LIPASE 62 U/L (73-393); POTASSIUM 3.2 mmol/L (3.5-5.1); SGPT/ALT 14 U/L (12-78); SODIUM 139 mmol/L (136-145); TOTAL PROTEIN 7.5 gm/dL (6.4-8.2)
== END 2022-09-27 21:43 | disposition home or self-care (01) ==
LOC: ED 15:57
PROVIDERS: Emergency Medicine
DX: K59.00 Constipation, unspecified (principal); E87.6 Hypokalemia; Z79.899 Other long term (current) drug therapy; Z98.890 Other specified postprocedural states; Z90.710 Acquired absence of both cervix and uterus; Z90.89 Acquired absence of other organs

== ENCOUNTER 2022-12-25 15:10 | Emergency (ER) | payer MEDICARE, OTHER ==
[~2022-12-25] VITALS: Ht 165.1 cm; Wt 81.6 kg
[2022-12-25 16:23] LABS: BASO # 0.1 10*3/uL (0.0-0.1); BASO % 0.6 % (0.0-1.0); EOS % 0.4 % (1.0-4.0); HEMATOCRIT 42.7 % (37.0-47.0); LYMPH # 1.3 10*3/uL (1.3-4.4); LYMPH % 15.9 % (27.0-41.0); MEAN CELL VOLUME 88.2 fl (81.0-99.0); MEAN CORPUSCULAR HGB 27.9 pg (27.0-31.0); MEAN CORPUSCULAR HGB CONC 31.6 g/dl (33.0-37.0); MEAN PLATELET VOLUME 9.2 fl (9.6-12.3); MONO # 0.6 10*3/uL (0.1-1.0); MONO % 7.6 % (3.0-9.0); NEUT # 6.2 10*3/uL (2.3-7.9); NEUT % 75.3 % (47.0-73.0); PLATELET COUNT AUTOMATED 283 10*3/uL (130-400); RED BLOOD COUNT 4.84 10*6/uL (4.10-5.10); RED CELL DISTRI WIDTH 15.6 % (0-14.5); WHITE BLOOD COUNT 8.2 10*3/uL (4.8-10.8)
[2022-12-25 16:40] LABS: ALKALINE PHOSPHATASE 60 U/L (46-116); BUN 14 mg/dl (9-23); CHLORIDE 104 mmol/L (98-107); LIPASE 30 U/L (12-53); POTASSIUM 4.3 mmol/L (3.4-5.1); TOTAL PROTEIN 7.9 gm/dL (6.0-8.0)
[2022-12-25 16:42] LABS: SGPT/ALT < 7 U/L (10-49)
[2022-12-25 17:47] LABS: BILIRUBIN Negative (Negative); BLOOD Negative (Negative); CLARITY Clear (Clear); COLOR Yellow (Yellow); GLUCOSE Negative (Negative); KETONE Negative (Negative); LEUKO ESTERASE 1+ (Negative); NITRITE Negative (Negative); PH 5.5 (4.5-8.0); UROBILINOGEN 0.2 E.U./dl (0.0-1.0)
[2022-12-25 18:04] LABS: BACTERIA 2+; MUCOUS 1+; RBC 0-2 rbc/hpf (0-2)
[2022-12-25 18:58] VITALS: BP 140/86
[2022-12-25] MEDS ORDERED: MACRODANTIN100 M1 PO (20:06)
== END 2022-12-25 20:34 | disposition home or self-care (01) ==
LOC: ED 15:10
PROVIDERS: Internal Medicine
DX: N39.0 Urinary tract infection, site not specified (principal); K56.41 Fecal impaction; E44.1 Mild protein-calorie malnutrition; I12.9 Hypertensive chronic kidney disease with stage 1 through stage 4 chronic kidney disease, or unspecified chronic kidney disease; N18.31 Chronic kidney disease, stage 3a; K21.9 Gastro-esophageal reflux disease without esophagitis; I48.91 Unspecified atrial fibrillation; Z96.653 Presence of artificial knee joint, bilateral; Z91.041 Radiographic dye allergy status; Z90.710 Acquired absence of both cervix and uterus; Z90.12 Acquired absence of left breast and nipple; Z98.890 Other specified postprocedural states

== ENCOUNTER 2023-04-26 15:58 | Inpatient (IN) | payer OTHER ==
[~2023-04-26] VITALS: Ht 157.5 cm; Wt 86.4 kg
[2023-04-26 15:45] VITALS: BP 68/33
[~2023-04-26 15:58] MED LIST changes: +ACETAMINOPHEN325 M2 PO; +ANTI-DIARRHEAL2 MG PO; +ASPIRIN ADULT L81 M1 PO; +HYDROCODONE-AC1 EAC1 PO; +MACRODANTIN100 M1 PO; +ONDANSETRON4 MG SL; +PROTONIX40 MG PO
[2023-04-28 08:00] VITALS: BP 111/71
== END 2023-04-28 09:40 | DRG 871 ==
LOC: ICCU 15:58 → 4E 15:58
PROVIDERS: ADMIT Internal Medicine; ATTEND Internal Medicine
DX: A41.9 Sepsis, unspecified organism (principal); E43 Unspecified severe protein-calorie malnutrition; K63.1 Perforation of intestine (nontraumatic); R65.21 Severe sepsis with septic shock; N17.0 Acute kidney failure with tubular necrosis; I21.4 Non-ST elevation (NSTEMI) myocardial infarction; Z66 Do not resuscitate; Z51.5 Encounter for palliative care; D64.9 Anemia, unspecified; Z68.33 Body mass index [BMI] 33.0-33.9, adult